=== PATIENT | male | born 1970 | race Caucasian/White ===

== ENCOUNTER → 2019-06-15 | Outpatient (CLI) | payer OTHER, SELFPAY ==
[2019-06-15 08:23] VITALS: BMI 30.5
--- NOTE | 2019-06-15 08:29 | RAD_ITS ---
STUDY: X-RAY - RIGHT FOOT CLINICAL: Male, 48 years old. Pain and swelling. No history of trauma. TECHNIQUE: 3 view(s) of the foot. COMPARISON: None. FINDINGS: There is a dorsal talar neck ?beak?. Normal visualized subtalar, talonavicular, calcaneocuboid, tarsal and tarsometatarsal articulations. Normal metatarsi. Normal metatarsophalangeal joint of the great toe. Normal tibial and fibular sesamoid bones. Normal interphalangeal joint of the great toe. Normal phalanges of the great toe. Normal second through fifth metatarsophalangeal joints. Normal interphalangeal joints and phalanges of the lesser toes. Soft tissue swelling. RAD/Foot min 3 Views IMPRESSION: Soft tissue swelling. Electronically Signed: Tres Johnson, at 9:01 EDT , Service support ,
--- NOTE | 2019-06-15 08:29 | RAD_ITS ---
STUDY: X-RAY - RIGHT ANKLE REASON FOR EXAM: Male, 48 years old. Pain and swelling. No history of trauma. TECHNIQUE: 3 view(s) of the ankle. COMPARISON: None. FINDINGS: Normal visualized distal tibia and fibula. Normal medial and lateral malleoli. Normal tibiotalar articulation and ankle mortise. Small spur at the insertion of the Achilles tendon. The visualized subtalar, talonavicular, calcaneocuboid and tarsal articulations are normal. Diffuse soft tissue swelling worse overlying the medial malleolus. RAD/Ankle min 3 Views IMPRESSION: Soft tissue swelling. Electronically Signed: Tres Johnson, at 8:58 EDT , Service support ,
== END | disposition home or self-care (01) ==
LOC: HPRAD 08:28
PROVIDERS: Referring Provider Physician Assistant; Visit Provider Physician Assistant
DX: M79.671 Pain in right foot (principal); M25.571 Pain in right ankle and joints of right foot
CPT/HCPCS: 73610; 73630